=== PATIENT | male | born 1980 | race American Indian/Alaskan Native ===

== ENCOUNTER 2018-11-05 19:13 | Emergency (ER) | payer SELFPAY ==
[2018-11-05 20:16] VITALS: BP 126/69
--- NOTE | 2018-11-05 20:17 | Event Note ---
ED Screening Note ED Screening Note: R SHOULDER PAIN This initial assessment/diagnostic orders/clinical plan/treatment(s) is/are subject to change based on patients health status, clinical progression and re- assessment by fellow clinical providers in the ED. Further treatment and workup at subsequent clinical providers discretion. Patient/guardian urged not to elope from the ED as their condition may be serious if not clinically assessed and managed. Initial orders include: XRAY
--- NOTE | 2018-11-05 20:46 | XRay Report ---
. RIGHT SHOULDER 3 VIEW(S) INDICATION / CLINICAL INFORMATION: Right shoulder pain COMPARISON: None available. FINDINGS: BONES / JOINT(S): No acute fracture or subluxation. No significant arthritis. SOFT TISSUES: No significant abnormality. ADDITIONAL FINDINGS: None. Signer Name: Gadiel Nava MD Signed: 11/05/2018 8:42 PM Workstation Name: [id number]
== END 2018-11-05 21:10 | disposition left against medical advice (07) ==
LOC: ED 19:13
DX: M25.511 Pain in right shoulder (principal); Z53.21 Procedure and treatment not carried out due to patient leaving prior to being seen by health care provider